=== PATIENT | male | born 2000 ===

== ENCOUNTER → 2023-06-06 | Outpatient (CLI) | payer OTHER ==
[~2023-06-06] VITALS: Ht 180.3 cm; Wt 82.0 kg
[~2023-06-06] MED LIST: ALBU1.252 NEB; BUDE0.5A6 NEB; IPRA0.2S49 NEB
[2023-06-06 10:17] VITALS: BP 96/66; PULSE 70; RESP 16; TEMP 97.7; O2SAT 97
== END | disposition home or self-care (01) ==
LOC: SRCNTR 09:54
PROVIDERS: ATTEND Internal Medicine
DX: Z09 Encounter for follow-up examination after completed treatment for conditions other than malignant neoplasm (principal); Q89.3 Situs inversus
CPT/HCPCS: G0463